=== PATIENT | female | born 1985 ===

== ENCOUNTER 2023-01-21 15:10 | Outpatient (CLI) | payer OTHER | END 2023-01-21 17:23 | disposition home or self-care (01) | LOC: PRENATAL 15:10 | PROVIDERS: ATTEND Obstetrics & Gynecology Maternal & Fetal Medicine | DX: O26.849 Uterine size-date discrepancy, unspecified trimester (principal); O24.319 Unspecified pre-existing diabetes mellitus in pregnancy, unspecified trimester; O09.519 Supervision of elderly primigravida, unspecified trimester; Z3A.16 16 weeks gestation of pregnancy ==

== ENCOUNTER 2023-02-13 14:16 | Outpatient (CLI) | payer OTHER | END 2023-02-13 16:18 | disposition home or self-care (01) | LOC: PRENATAL 14:16 | PROVIDERS: ATTEND Obstetrics & Gynecology Maternal & Fetal Medicine | DX: O35.3XX0 Maternal care for (suspected) damage to fetus from viral disease in mother, not applicable or unspecified (principal); O24.319 Unspecified pre-existing diabetes mellitus in pregnancy, unspecified trimester; O09.519 Supervision of elderly primigravida, unspecified trimester; Z3A.20 20 weeks gestation of pregnancy ==

== ENCOUNTER 2023-02-27 08:04 | Outpatient (CLI) | payer OTHER ==
[~2023-02-27 08:04] MED LIST: ADULT LOW DOSE81 M1; HUMULIN N100 UNIT/2 SUBCUTANEO; INDOMETHACIN25 MG PO; NOVOLIN R100 UNIT/1 SUBCUTANEO; PRENA1 TRUE CO1 EACH
== END 2023-02-27 09:00 | disposition home or self-care (01) ==
LOC: PRENATAL 08:04
PROVIDERS: ATTEND Obstetrics & Gynecology Maternal & Fetal Medicine
DX: O34.30 Maternal care for cervical incompetence, unspecified trimester (principal); O09.519 Supervision of elderly primigravida, unspecified trimester; O24.319 Unspecified pre-existing diabetes mellitus in pregnancy, unspecified trimester; Z3A.22 22 weeks gestation of pregnancy

== ENCOUNTER 2023-03-14 13:54 | Outpatient (CLI) | payer OTHER | END 2023-03-14 13:56 | disposition home or self-care (01) | LOC: PRENATAL 13:54 | PROVIDERS: ATTEND Obstetrics & Gynecology Maternal & Fetal Medicine | DX: O26.849 Uterine size-date discrepancy, unspecified trimester (principal); O34.30 Maternal care for cervical incompetence, unspecified trimester; O09.519 Supervision of elderly primigravida, unspecified trimester; O24.319 Unspecified pre-existing diabetes mellitus in pregnancy, unspecified trimester; Z3A.24 24 weeks gestation of pregnancy ==

== ENCOUNTER 2023-04-11 15:45 | Outpatient (CLI) | payer OTHER | END 2023-04-11 15:46 | disposition home or self-care (01) | LOC: PRENATAL 15:45 | PROVIDERS: ATTEND Obstetrics & Gynecology Maternal & Fetal Medicine | DX: O26.849 Uterine size-date discrepancy, unspecified trimester (principal); O34.30 Maternal care for cervical incompetence, unspecified trimester; O09.519 Supervision of elderly primigravida, unspecified trimester; O24.319 Unspecified pre-existing diabetes mellitus in pregnancy, unspecified trimester; Z3A.28 28 weeks gestation of pregnancy ==

== ENCOUNTER 2023-05-09 14:15 | Outpatient (CLI) | payer OTHER | END 2023-05-09 14:16 | disposition home or self-care (01) | LOC: PRENATAL 14:15 | PROVIDERS: ATTEND Obstetrics & Gynecology Maternal & Fetal Medicine | DX: O26.849 Uterine size-date discrepancy, unspecified trimester (principal); O36.8199 Decreased fetal movements, unspecified trimester, other fetus; O34.30 Maternal care for cervical incompetence, unspecified trimester; O09.519 Supervision of elderly primigravida, unspecified trimester; O24.319 Unspecified pre-existing diabetes mellitus in pregnancy, unspecified trimester; Z3A.32 32 weeks gestation of pregnancy ==

== ENCOUNTER 2023-06-05 09:28 | Outpatient (CLI) | payer OTHER | END 2023-06-05 09:32 | disposition home or self-care (01) | LOC: PRENATAL 09:28 | PROVIDERS: ATTEND Obstetrics & Gynecology Maternal & Fetal Medicine | DX: O26.849 Uterine size-date discrepancy, unspecified trimester (principal); O36.8199 Decreased fetal movements, unspecified trimester, other fetus; O24.319 Unspecified pre-existing diabetes mellitus in pregnancy, unspecified trimester; O34.30 Maternal care for cervical incompetence, unspecified trimester; Z3A.36 36 weeks gestation of pregnancy ==